=== PATIENT | female | born 1990 | race Caucasian/White ===

== ENCOUNTER 2023-03-14 09:39 | Outpatient (CLI) | payer MEDICAID, SELFPAY ==
--- NOTE | 2023-03-14 09:47 | MM_ITS ---
WS: [id number] BILATERAL 3D TOMOSYNTHESIS DIGITAL SCREENING MAMMOGRAPHY WITH CAD CLINICAL INFORMATION: LT BREAST LUMP HISTORY: Screening mammogram. LEFT breast lump COMPARISON: None. TECHNIQUE: Bilateral CC and MLO views. FINDINGS: The breasts are composed of heterogeneous fibroglandular density tissue, which can limit the detectio n of small underlying mass lesions. Palpable marker upper outer LEFT breast. Dense underlying parench ymal tissue in this location. Ultrasound of this area described below. RIGHT breast is unremarkable. ULTRASOUND BREAST LEFT TECHNIQUE: Ultrasound left breast focused area of concern. CLINICAL INFORMATION: LT BREAST LUMP FINDINGS: Ultrasound LEFT breast near the area of concern. Ultrasound 1:00 position 2 cm the nipple demonstrate s a simple cyst measuring 4.7 x 1.7 x 4.1 mm. No other suspicious findings. Findings are benign. Demetri mmend annual screening mammography age 41 MM/[place] [id number] IMPRESSION: BI-RADS: 2-Benign FOLLOW UP: Age 41 Recommend annual screening mammography age 41.
--- NOTE | 2023-03-14 10:36 | CT_ITS ---
WS: [id number] CT ABDOMEN WITH CONTRAST HISTORY: UPPER ABDOMINAL PAIN Contiguous single phase 5 mm axial imaging performed to the abdomen. Oral contrast has not been provi ded. Coronal and sagittal reformats are submitted. All CT scans at [facility] use at least on e of these dose optimization techniques: automated exposure control; mA and/or kV adjustment per yasmin ent size (includes targeted exams where dose is matched to clinical indication); or iterative reconst ruction. IV CONTRAST: Omnipaque 350; 100 mL IV. Oral contrast: No DLP: 193.27 mGy.cm COMPARISON: None available. Lower thorax: Partially calcified nodules at the lung bases consistent with benign granulomatous dise ase. Heart is normal size. Small hiatal hernia. Liver/biliary system: Normal size with no intrahepatic dilatation. Gallbladder: Status post cholecystectomy. Pancreas: Normal size pancreas and pancreatic duct. No adjacent inflammation. Spleen: Normal size spleen. No mass or infarct. Adrenal glands: Normal. Right kidney: Normal. Left kidney: Normal. Aorta: Normal. Lymphadenopathy: No adenopathy identified. Free fluid: None. GI tract: There is a low-attenuation mass with peripheral calcification in the RIGHT lower quadrant. As per history patient had a prior appendectomy. Calcified mass is likely benign process. Could be a calcified diverticulum. This is probably separate from the RIGHT kidney. There is mild soft tissue thickening involving the antrum and pylorus of the stomach. Abdominal wall: Unremarkable abdominal wall. No hernia. Visualized osseous structures: Unremarkable. CT/CT abdomen w con* [id number] IMPRESSION: 1. Prior cholecystectomy and appendectomy. 2. Peripheral calcified mass in the RIGHT lower quadrant uncertain etiology. P robably benign. This will need to be followed up to confirm stability. Heavy ca lcification related to postoperative site of the appendectomy. Recommend follow -up CT abdomen and pelvis with IV and oral contrast in 3 months. Oral contrast will be important. 3. Mild circumferential edema and thickening involving the antrum and pylorus. Consider focal gastritis.
[2023-03-14] MEDS: iohexol 350 mg/mL 500 mL Btl (per mL) IV (11:00)
== END 2023-03-14 09:40 | disposition home or self-care (01) ==
PROVIDERS: PCP Family Medicine; Visit Provider Family Medicine
DX: Z12.31 Encounter for screening mammogram for malignant neoplasm of breast (principal); N60.02 Solitary cyst of left breast; R10.10 Upper abdominal pain, unspecified; R19.03 Right lower quadrant abdominal swelling, mass and lump
CPT/HCPCS: 74160; 76642; 77062; G0279; Q9967

== ENCOUNTER 2023-06-26 08:31 | Outpatient (CLI) | payer MEDICAID, SELFPAY ==
--- NOTE | 2023-06-26 | MR_ITS ---
WS: [id number] MRI BRAIN WITH AND WITHOUT CONTRAST HISTORY: MS, TREMOR COMPARISON: None available. TECHNIQUE: Multiplanar imaging performed through the brain with MultiHance 16 ml's IV. No acute infarcts are seen. Mukherjee-white matter differentiation is well preserved. No white matter demy elinating lesions identified. No susceptibility artifacts or prior lacunar infarcts. Ventricles and extra-axial spaces are normal. Clivus and pituitary gland are normal. Visualized posterior fossa and brainstem are also normal. Postcontrast images are negative for masses or vascular malformations. Dural venous sinuses are normal. Paranasal sinuses: Well aerated with no significant disease. Mastoid air cells: Normal. Calvarium and scalp: Normal. IMPRESSION: 1. Normal MRI brain with contrast. 2. No evidence for active or remote demyelination. No volume loss or atrophy.
== END 2023-06-26 08:32 | disposition home or self-care (01) ==
PROVIDERS: PCP Family Medicine; Visit Provider Family Medicine
DX: R25.1 Tremor, unspecified (principal); G35 Multiple sclerosis; R53.83 Other fatigue; M79.10 Myalgia, unspecified site
CPT/HCPCS: 70553; A9577